=== PATIENT | female | born 1990 | race Caucasian/White ===

== ENCOUNTER 2017-02-19 19:08 | Emergency (ER) | payer OTHER ==
[2017-02-19] MEDS ORDERED: IPRATROPIUM/ALBUTEROL 0.5-2.5 MG/3 ML AMPUL NEB ONE ×2 (19:27→19:28)
[2017-02-19] MEDS ORDERED: METHYLPREDNISOLONE INJ 125 MG/2 ML SDV IV ONE (19:27)
[2017-02-19] MEDS ORDERED: NORMAL SALINE 1000 ML 1,000 ML IV ONE (19:27)
[2017-02-19] MEDS ORDERED: MAGNESIUM SULFATE/D5W 1 GM/100 ML RTUPB IV ONE (19:28)
[2017-02-19] MEDS ORDERED: ALBUTEROL SULFATE 0.083% NEB 2.5 MG/3 ML AMPUL NEB ONE (19:30)
--- NOTE | 2017-02-19 19:32 | ER Document Report ---
ED General - General Chief Complaint: Shortness Of Breath Stated Complaint: DIFFICULTY BREATHING Time Seen by Provider: 02/19/17 19:26 Cannot obtain history due to: Unstable vital signs Notes: Patient is a 26-year-old female with a past medical history asthma who presents with 20-30 minutes of severe shortness of breath. Patient states that her symptoms started relatively abruptly and did not improve after she tried an albuterol treatment. She denies a history of such a severe exacerbation in the past but also notes that she typically has albuterol available to her and only had one treatment available prior to coming to the hospital today. She does note that she has had some recent cough with associated clear phlegm which has been similar to multiple sick contacts with viral upper respiratory symptoms. She has not noted that anything seems to worsen her symptoms. History is otherwise somewhat limited secondary to the degree of patient's distress at time of arrival. TRAVEL OUTSIDE OF THE [place] IN LAST 30 DAYS: No - Related Data Allergies/Adverse Reactions: No Known Allergies Allergy (Verified 02/19/17 20:13) Past Medical History - General Information source: Patient - Social History Smoking Status: Never Smoker Frequency of alcohol use: None Drug Abuse: None Lives with: Spouse/Significant other Family History: Reviewed & Not Pertinent Review of Systems - Review of Systems Notes: Constitutional: Negative for fever. HENT: Negative for sore throat. Eyes: Negative for visual changes. Cardiovascular: Negative for chest pain. Respiratory: Positive for shortness of breath. Gastrointestinal: Negative for abdominal pain, vomiting or diarrhea. Genitourinary: Negative for dysuria. Musculoskeletal: Negative for back pain. Skin: Negative for rash. Neurological: Negative for headaches, weakness or numbness. 10 point ROS negative except as marked above and in HPI. Physical Exam - Vital signs Vitals: Temp Pulse Resp BP Pulse Ox 97.4 F 88 24 H 140/78 H 91 L 02/19/17 19:16 02/19/17 19:16 02/19/17 19:16 02/19/17 19:16 02/19/17 19:16 Interpretation: Hypoxic, Tachypneic Notes: PHYSICAL EXAMINATION: GENERAL: In moderate to severe respiratory distress. HEAD: Atraumatic, normocephalic. EYES: Pupils equal round and reactive to light, extraocular movements intact, sclera anicteric, conjunctiva are normal. ENT: nares patent, oropharynx clear without exudates. Moderately dry mucous membranes. NECK: Normal range of motion, supple without lymphadenopathy LUNGS: Poor air movement at the bases bilaterally. Tachypneic. Supraclavicular intercostal retractions are present. Prolonged expiratory phase with expiratory wheezing. HEART: Regular tachycardia without murmurs ABDOMEN: Soft, nontender, normoactive bowel sounds. No guarding, no rebound. No masses appreciated. EXTREMITIES: Normal range of motion, no pitting or edema. No cyanosis. NEUROLOGICAL: No focal neurological deficits. Moves all extremities spontaneously and on command. PSYCH: Normal mood, normal affect. SKIN: Warm, Dry, normal turgor, no rashes or lesions noted. Course - Re-evaluation Re-evalutation: 02/19/17 19:31 Patient presents in moderate respiratory distress with supraclavicular and intercostal retractions as well as poor air movement throughout. She is diminished at the bases bilaterally with prolonged respiratory phase. Immediately upon assessment of this patient I requested continuous albuterol Atrovent nebulization be started an IV placed. We will start Solu-Medrol, magnesium, IV fluids and maintain continuous nebulization of beta agonists. Will reassess frequently as patient is critically ill at this time due to her respiratory distress 02/19/17 20:14 Patient has had an incredibly rapid and marked improvement of her work of breathing after only 20 minutes on continuous nebulizers and the first 1 g of magnesium. Hold off on additional nebulization at this time but will continue to monitor the patient closely is I am worried about the degree of her respiratory distress at time of presentation and remain concerned for the possibility of rebound. - Vital Signs Vital signs: Temp Pulse Resp BP Pulse Ox 97.4 F 88 17 129/82 H 99 02/19/17 19:16 02/19/17 19:16 02/19/17 21:31 02/19/17 21:31 02/19/17 21:31 - Laboratory Result Diagrams: 02/19/17 19:45 02/19/17 19:45 - Diagnostic Test Radiology reviewed: Image reviewed, Reports reviewed Radiology results interpreted by me: 02/19/17 20:15 Chest x-ray: No acute infiltrate or pneumothorax Critical Care Note - Critical Care Note Total time excluding time spent on procedures (mins): 38 Comments: Critical care time spent obtaining history from patient or surrogate, discussions with consultants, development of treatment plan with patient or surrogate, evaluation of patient's response to treatment, examination of patient , ordering and performing treatments and interventions, ordering and review of laboratory studies, re-evaluation of patient's condition, ordering and review of radiographic studies and review of old charts Discharge - Discharge Clinical Impression: Respiratory distress Asthma exacerbation Qualifiers: Asthma severity: moderate Asthma persistence: unspecified Qualified Code(s): J45.901 - Unspecified asthma with (acute) exacerbation Condition: Good Disposition: HOME, SELF-CARE Additional Instructions: You were seen for an asthma exacerbation. Your symptoms improved with treatment here in the emergency department. However, it is very important that you return to the emergency department immediately if you began to have worsening difficulty breathing that does not respond to your normal home nebulizers. You are also being sent home on a five-day course of steroids that you should start taking tomorrow. Please also follow closely with your primary care physician. you should also return to emergency department if you develop fever greater than 101, persistent cough, persistent vomiting, pass out, or any other symptoms that are concerning to you. Prescriptions: Prednisone [Deltasone 20 mg Tablet] 3 tab PO DAILY 5 Days tablet
[2017-02-19] MEDS: MAGNESIUM SULFATE/D5W 1 GM/100 ML RTUPB IV SCH ×2 (19:42→20:03)
[2017-02-19 19:56] LABS: ABSOLUTE EOSINOPHILS # (AUTO) 0.2 10^3/uL (0.0-0.6); ABSOLUTE LYMPHOCYTES (AUTO) 2.6 10^3/uL (0.5-4.7); ABSOLUTE MONOCYTES (AUTO) 0.4 10^3/uL (0.1-1.4); ABSOLUTE NEUT (AUTO) 3.2 10^3/uL (1.7-8.2); BASOPHILS % (AUTO) 0.6 % (0-2); EOSINOPHILS % (AUTO) 3.1 % (0-6); HEMATOCRIT 44.1 % (36.0-47.0); HEMOGLOBIN 14.8 g/dL (12.0-15.5); LYMPHOCYTES % (AUTO) 40.4 % (13-45); MEAN CORPUSCULAR HEMOGLOBIN 29.3 pg (27.0-33.4); MEAN CORPUSCULAR HGB CONC 33.5 g/dL (32.0-36.0); MEAN CORPUSCULAR VOLUME 87 fl (80-97); MONOCYTES % (AUTO) 6.9 % (3-13); PLATELET COUNT 242 10^3/uL (150-450); RED BLOOD COUNT 5.05 10^6/uL (3.72-5.28); RED CELL DISTRIBUTION WIDTH 13.3 % (11.5-14.0); TOTAL CELLS COUNTED % (AUTO) 100 %; WHITE BLOOD COUNT 6.5 10^3/uL (4.0-10.5)
--- NOTE | 2017-02-19 19:58 | RADIOLOGY REPORT (SQ) ---
EXAM DESCRIPTION: CHEST SINGLE VIEW COMPLETED DATE/TIME: 02/19/2017 7:45 pm REASON FOR STUDY: sob COMPARISON: None. EXAM PARAMETERS: NUMBER OF VIEWS: One view. TECHNIQUE: Single frontal radiographic view of the chest acquired. RADIATION DOSE: NA LIMITATIONS: None. FINDINGS: LUNGS AND PLEURA: No opacities, masses or pneumothorax. No pleural effusion. MEDIASTINUM AND HILAR STRUCTURES: No masses. Contour normal. HEART AND VASCULAR STRUCTURES: Heart normal in size. Normal vasculature. BONES: No acute findings. HARDWARE: None in the chest. OTHER: No other significant finding. IMPRESSION: NO ACUTE RADIOGRAPHIC FINDING IN THE CHEST. TECHNICAL DOCUMENTATION: JOB ID: [id number] [place]-72 2010 [employer]- All Rights Reserved
[2017-02-19 20:11] LABS: ANION GAP 11 (5-19); BLOOD UREA NITROGEN 12 mg/dL (7-20); CALCIUM 10.2 mg/dL (8.4-10.2); CARBON DIOXIDE 27 mmol/L (22-30); CHLORIDE 103 mmol/L (98-107); GLUCOSE 99 mg/dL (75-110); POTASSIUM 4.4 mmol/L (3.6-5.0); SODIUM 141.4 mmol/L (137-145)
[2017-02-19] MEDS ORDERED: ALBUTEROL SULFATE HFA (90 MCG/PUFF) 8 GM MDI (1 MDI/ER DISP) IH PRN (20:16)
[2017-02-19 21:39] VITALS: BP 129/82
== END 2017-02-19 21:39 | disposition home or self-care (01) ==
LOC: ER 19:08
DX: J45.909 Unspecified asthma, uncomplicated (principal); R06.02 Shortness of breath; R05 Cough; R09.02 Hypoxemia
CPT/HCPCS: 94640; 99291; 96375; 96365; 36415; 85025; 80048; 71010; J2930; J3475; J7030; J3490; J7620

== ENCOUNTER → 2017-08-01 | Outpatient (CLI) | payer OTHER ==
--- NOTE | 2017-08-01 16:34 | RADIOLOGY REPORT (SQ) ---
EXAM DESCRIPTION: CT SINUSES FOR ENT COMPLETED DATE/TIME: 08/01/2017 3:12 pm REASON FOR STUDY: CHRONIC SINUSITIS, UNSPECIFIED J32.9 CHRONIC SINUSITIS, UNSPECIFIED COMPARISON: None. TECHNIQUE: Noncontrast scanning through the paranasal sinuses using bone algorithm. Reconstructed MPR images reviewed. All images stored on PACS. All CT scanners at this facility use dose modulation, iterative reconstruction, and/or weight based d osing when appropriate to reduce radiation dose to as low as reasonably achievable (ALARA). [facility]: Dose Right [facility]: CareDose [facility]: Dose Right [facility]: Teradose 4D [facility]: Linksify RADIATION DOSE: mGy. LIMITATIONS: None. FINDINGS: SINUSES: There is extensive sinus disease with opacification of the maxillary antra, ethmo idal air cells bilaterally, and frontal sinuses. NASAL CAVITY: Midline nasal septum. BONES: Normal mineralization. No fracture or bone lesion. ORBITS: Intact, symmetric globes. No retroorbital mass. TMJS: Normal. MASTOIDS: Clear. IACs symmetric, grossly normal. INFERIOR BRAIN: Limited view. No acute findings. OTHER: No other significant finding. IMPRESSION: Extensive sinus disease as noted above. TECHNICAL DOCUMENTATION: JOB ID: [id number] Quality ID # [id number]: Final reports with documentation of one or more dose reduction techniques (e.g., Au tomated exposure control, adjustment of the mA and/or kV according to patient size, use of iterative reconstruction technique) 2010 [employer]- All Rights Reserved Reading location - IP/workstation name: [facility]
== END ==
LOC: RAD 14:45
PROVIDERS: ATTEND Otolaryngology
DX: J32.9 Chronic sinusitis, unspecified (principal); J33.9 Nasal polyp, unspecified; J34.2 Deviated nasal septum
CPT/HCPCS: 70486

== ENCOUNTER 2017-11-21 08:45 | Day surgery (SDC) | payer OTHER ==
[~2017-11-21 08:45] MED LIST: CEFAZOLIN 2 GM/D5W RTU 2 GM/50 ML RTUPB IV PRN
[2017-11-21] MEDS ORDERED: ALBUTEROL SULFATE 0.083% NEB 2.5 MG/3 ML AMPUL NEB ONE (09:23)
[2017-11-21] MEDS ORDERED: SCOPOLAMINE HYDROBROMIDE 1.5 MG PATCH.TD72 TD PRN (09:36)
[2017-11-21] MEDS ORDERED: LIDOCAINE 0.5% INJ-PF (5 MG/ML) 50 ML SDV SUBCUT PRN (09:36)
[2017-11-21] MEDS ORDERED: LACTATED RINGERS 1000 ML IV PRN (09:36)
[2017-11-21] MEDS ORDERED: FENTANYL CITRATE INJ/PF 100 MCG/2 ML AMPUL ONE ×2 (10:58→11:03)
[2017-11-21] MEDS ORDERED: MIDAZOLAM HCL SYRUP 10 MG/5 ML UDC ONE (10:59)
[2017-11-21] MEDS ORDERED: MIDAZOLAM 2 MG/2 ML INJ ONE (11:00)
[2017-11-21] MEDS ORDERED: PROPOFOL INJ 200 MG/20 ML VIAL IV ONE (11:00)
[2017-11-21] MEDS ORDERED: BUPIVACAINE HCL 0.5%-EPI 1:200000 INJ/PF 30 ML VIAL ONE (11:18)
[2017-11-21] MEDS ORDERED: BUPIVACAINE HCL 0.5%/EPI 1:200000 INJ 1.8 ML CARTRIDGE ONE (11:18)
[2017-11-21] MEDS ORDERED: MINERAL OIL (STERILE) 10 ML VIAL ONE (11:18)
[2017-11-21] MEDS: OXYMETAZOLINE HCL 0.05% NASAL SPRAY 15 ML BOTTLE ONE ×2 (12:07→14:30)
[2017-11-21] MEDS ORDERED: DEXMEDETOMIDINE INJ 80 MCG/20 ML VIAL IV ONE (15:19)
[2017-11-21] MEDS ORDERED: PROMETHAZINE HCL INJ 25 MG/1 ML VIAL ONE (16:29)
[2017-11-21] MEDS ORDERED: OXYCODONE-ACETAMINOPHEN 5-325 MG TABLET ONE (16:47)
--- NOTE | 2017-11-25 07:56 | SURGICARE OPERATIVE REPORT E ---
[facility] [place] Operative Report NAME: CELIO MIRAMONTES AGE: 26Y DATE OF SURGERY: 11/21/2017 ROOM: PREOPERATIVE DIAGNOSES: 1. CHRONIC SINONASAL POLYPOSIS/POLYP DISEASE. 2. ACUTE RECURRENT SINUSITIS. 3. CHRONIC SINUSITIS. 4. NASAL SEPTAL DEVIATION, ACQUIRED. 5. CHRONIC NASAL DYSPNEA. 6. SEPTAL SPUR. 7. BILATERAL MIDDLE TURBINATE HYPERTROPHY. 8. BILATERAL INFERIOR TURBINATE HYPERTROPHY. POSTOPERATIVE DIAGNOSES: 1. CHRONIC SINONASAL POLYPOSIS/POLYP DISEASE. 2. ACUTE RECURRENT SINUSITIS. 3. CHRONIC SINUSITIS. 4. NASAL SEPTAL DEVIATION, ACQUIRED. 5. CHRONIC NASAL DYSPNEA. 6. SEPTAL SPUR. 7. BILATERAL MIDDLE TURBINATE HYPERTROPHY. 8. BILATERAL INFERIOR TURBINATE HYPERTROPHY. OPERATION: 1. Image-guided functional endoscopic sinus surgery, which includes the followin. Bilateral transnasal polypectomies/polyp tissue removal via rigid endoscopic surgical endoscopy. 3. Bilateral maxillary enterostomies with tissue removal via bilateral transnasal rigid surgical endoscopy. 4. Bilateral total ethmoidectomies (anterior and posterior ethmoidectomies) with tissue removal via bilateral transnasal rigid surgical endoscopy. 5. Bilateral intranasal/transnasal frontal sinus sinusotomies with tissue removal via bilateral rigid transnasal surgical endoscopy. 6. Septoplasty. 7. Bilateral inferior turbinate reduction using a submucous resection technique. 8. Bilateral middle turbinate reductions via bilateral rigid transnasal surgical endoscopy. 9. Placement of bilateral frontal sinus and bilateral ethmoid sinus distribution Propel steroid-eluting stents via bilateral transnasal rigid surgical endoscopy. SURGEON: TARIQ CEE D.O. ANESTHESIA: General endotracheal tube. ANESTHESIA STAFF: WILFRIDO Agrawal. COMPLICATIONS: None. DRAINS: None. SPONGE COUNT: Verified. NEEDLE COUNTS: Verified. MATERIALS FORWARDED SPECIMEN: Left and right sinus tissue/polyp tissue for rule out polyps. FINDINGS: 1. Extensive bilateral sinonasal polyp disease/polyp tissue/polyp changes. 2. Left nasal septal deviation involving bone and cartilage along with a left maxillary crest burst/septal spur. 3. There was no sinus discharge noted. 4. Bilateral middle turbinate hypertrophy. 5. Bilateral inferior turbinate hypertrophy. ESTIMATED BLOOD LOSS: 150 mL FLUIDS: 2350 mL URINE OUTPUT: 700 mL INDICATIONS: This is a 26-year-old white female patient who was seen and evaluated in the [place] otolaryngology office. The patient had been referred for and she complained of a longstanding history of acute recurrent sinus infections as well as chronic sinus disease and changes consistent with extensive sinonasal polyp disease. The patient had undergone CT sinus imaging and clinical collectable endoscopy. There was extensive discussion with the patient, with recommendation and plan for image-guided functional endoscopic sinus surgery, septoplasty, turbinate reductions, and placement of Propel steroid-eluting stents. The patient voiced an understanding of all that had been discussed and desired to proceed. The procedures and all of their risks and complications were all discussed in detail with the patient. She voiced an understanding of the described surgical plan, agreed to proceed, and consent was obtained. PROCEDURE: The patient was taken to the main operating room and was placed on the operating room table in the supine position. Appropriate monitors were placed. Using mask and IV access, general anesthesia was induced. The patient was transorally intubated without difficulty. The patient was then positioned and prepped for sinus and nasal surgery that was image guided. The patient underwent a nasal examination with injection of local anesthetic with epinephrine, followed by placement of 2 Afrin-soaked Neuro Patties. The image-guidance system was set up prior to beginning the case and tested appropriately. The patient was next prepped and draped in the usual fashion for nasal and sinus surgery. The 2 Afrin-soaked Neuro Patties were removed and the patient next underwent a hemitransfixion incision. There was elevation of the mucoperichondrial and mucoperiosteal flaps without difficulty. The bony septal cartilaginous junction was identified and divided and the most deviated portions of septal cartilage and bone were removed to include the large left septal spur/maxillary crest spur. There was a greater than 1.5 x 1.5-cm cartilaginous L strut that was preserved. At this point, the turbinate wand was used to make 2 passes in each inferior turbinate. Next, the turbinate microdebrider system at a setting of 1500 rpm was used to perform submucous resection on each side. At this point, the image guidance functional endoscopic sinus surgery portion of the case was addressed in the following manner. With use of sinus surgical instrumentation, the rigid transnasal surgical endoscope and microdebrider system at a setting of 3000 rpm, the middle turbinate reductions were performed, addressing the anterior portions on each side. The maxillary enterostomies were performed without difficulty with tissue removal bilateral. The anterior and posterior ethmoidectomies/total ethmoidectomies bilateral were performed without difficulty with tissue removal. The intranasal/transnasal frontal sinus sinusotomies were performed without difficulty. Once these portions of the case were completed, there was 1 Propel steroid-eluting stent placed within the frontal sinus recess distribution bilateral and in the ethmoid sinus distribution bilateral under the guidance of rigid surgical endoscopy. At this point, the patient's nose was again thoroughly irrigated and suctioned and there was adequate hemostasis noted. The patient had a modified Merocel pack placed, 1 per nasal passage, with bacitracin ointment and these were secured at the caudal aspect with Prolene suture. The hemitransfixion incision was reapproximated with chromic suture. At this point, the patient's nose was cleaned and dried and she was returned to the Anesthesia staff and was allowed to emerge from general anesthesia. The patient was extubated in the main operating room and was then transported to the postanesthesia recovery unit in stable condition. There were no complications. DICTATING PHYSICIAN: TARIQ CEE D.O. [id number] PHY#: [id number] ID: [id number] JOB#: [id number] ACCT: [id number] cc:TARIQ CEE D.O. >
== END 2017-11-21 17:26 | disposition home or self-care (01) ==
LOC: SC 08:45
PROVIDERS: ATTEND Otolaryngology
DX: J33.9 Nasal polyp, unspecified (principal); J33.8 Other polyp of sinus; J45.909 Unspecified asthma, uncomplicated; J32.9 Chronic sinusitis, unspecified; J34.2 Deviated nasal septum; J34.89 Other specified disorders of nose and nasal sinuses; R06.09 Other forms of dyspnea; R43.8 Other disturbances of smell and taste; Z79.51 Long term (current) use of inhaled steroids; Z79.899 Other long term (current) drug therapy
CPT/HCPCS: 160; 88305; J0690; J2250; J2550; J2704; J3010; J3490

== ENCOUNTER 2018-02-25 17:22 | Emergency (ER) | payer OTHER ==
[2018-02-25 17:27] VITALS: BP 130/79
[2018-02-25] MEDS ORDERED: LIDOCAINE 1% INJ-PF (10 MG/ML) 30 ML SDV INJ ONE (19:58)
[2018-02-25] MEDS ORDERED: ACETAMINOPHEN 325 MG TABLET PO ONE (20:00)
[2018-02-25] MEDS ORDERED: ONDANSETRON 4 MG TAB.RAPDIS PO ONE (20:00)
--- NOTE | 2018-02-25 20:00 | ER Document Report ---
ED Medical Screen (RME) - General Chief Complaint: Head Injury Stated Complaint: HEAD INJURY Time Seen by Provider: 02/25/18 19:55 Mode of Arrival: Ambulatory Information source: Patient Notes: 27-year-old female presents with a laceration to her forehead after hitting her head against the car door. Unclear whether she had a loss of consciousness. Is currently complaining of nausea and headache. No vomiting I have greeted and performed a rapid initial assessment of this patient. A comprehensive ED assessment and evaluation of the patient, analysis of test results and completion of medical decision making process we will be contacted by additional ED providers. PHYSICAL EXAMINATION: Vital signs reviewed-within normal limits GENERAL: Well-appearing, well-nourished and in no acute distress. LUNGS: No respiratory distress Musculoskeletal: Normal range of motion NEUROLOGICAL: Normal speech, normal gait. PSYCH: Normal mood, normal affect. SKIN: 1.5 cm laceration to the forehead TRAVEL OUTSIDE OF THE [place] IN LAST 30 DAYS: No - HPI Onset: Just prior to arrival Onset/Duration: Sudden Quality of pain: Achy Associated Symptoms: Headache, Nausea Exacerbated by: Denies Relieved by: Denies Similar symptoms previously: No Recently seen / treated by doctor: No - Related Data Smoking: Non-smoker Frequency of alcohol use: None Drug Abuse: None Allergies/Adverse Reactions: No Known Allergies Allergy (Verified 02/25/18 17:23) Past Medical History - Social History Chew tobacco use (# tins/day): No Frequency of alcohol use: None Drug Abuse: None - Past Medical History Cardiac Medical History: Denies: Hx Heart Attack, Hx Hypertension Pulmonary Medical History: Reports: Hx Asthma Neurological Medical History: Denies: Hx Cerebrovascular Accident, Hx Seizures Renal/ Medical History: Denies: Hx Peritoneal Dialysis GI Medical History: Denies: Hx Hepatitis, Hx Hiatal Hernia, Hx Ulcer Infectious Medical History: Denies: Hx Hepatitis Past Surgical History: Reports: Hx Gynecologic Surgery - L fallopian tube, Hx Nose Surgery - sinuses. Denies: Hx Mastectomy, Hx Open Heart Surgery, Hx Pacemaker Physical Exam - Vital signs Vitals: Temp Pulse Resp BP Pulse Ox 98.6 F 73 16 130/79 H 100 02/25/18 17:26 02/25/18 17:26 02/25/18 17:26 02/25/18 17:26 02/25/18 17:26 Course - Vital Signs Vital signs: Temp Pulse Resp BP Pulse Ox 98.6 F 73 16 130/79 H 100 02/25/18 17:26 02/25/18 17:26 02/25/18 17:26 02/25/18 17:26 02/25/18 17:26 Doctor's Discharge - Discharge Referrals: JIGAR BRANDT, [employer] [Primary Care Provider] - Follow up as needed
--- NOTE | 2018-02-25 22:25 | ER Document Report ---
ED General - General Chief Complaint: Head Injury Stated Complaint: HEAD INJURY Time Seen by Provider: 02/25/18 19:55 Mode of Arrival: Ambulatory Notes: Patient is a 27-year-old female presents with complaint of opening her car door and hitting her head with a car door. She had her forehead. She initially she was dazed but did not lose conscious. She had some nausea and headache but that has since resolved. She denies any other injuries. No other complaints. She initially had a little bit swelling to her forehead but she says is improved with cool compresses. She has a small laceration over her forehead. No neck pain. No other complaints at this time. She is not on blood thinning medications. TRAVEL OUTSIDE OF THE [place] IN LAST 30 DAYS: No - Related Data Allergies/Adverse Reactions: No Known Allergies Allergy (Verified 02/25/18 17:23) Past Medical History - General Information source: Patient - Social History Smoking Status: Never Smoker Chew tobacco use (# tins/day): No Frequency of alcohol use: None Drug Abuse: None Family History: Reviewed & Not Pertinent Patient has suicidal ideation: No Patient has homicidal ideation: No - Past Medical History Cardiac Medical History: Denies: Hx Heart Attack, Hx Hypertension Pulmonary Medical History: Reports: Hx Asthma Neurological Medical History: Denies: Hx Cerebrovascular Accident, Hx Seizures Renal/ Medical History: Denies: Hx Peritoneal Dialysis GI Medical History: Denies: Hx Hepatitis, Hx Hiatal Hernia, Hx Ulcer Infectious Medical History: Denies: Hx Hepatitis Past Surgical History: Reports: Hx Gynecologic Surgery - L fallopian tube, Hx Nose Surgery - sinuses. Denies: Hx Mastectomy, Hx Open Heart Surgery, Hx Pacemaker Review of Systems - Review of Systems Notes: My Normal Review Basic REVIEW OF SYSTEMS: CONSTITUTIONAL : Denies fever, chills, or sweats. Denies recent illness. MUSCULOSKELETAL: Denies neck or back pain or joint pain or swelling. SKIN: Small laceration of her forehead. HEMATOLOGIC : Denies easy bruising or bleeding. NEUROLOGICAL: Denies altered mental status or loss of consciousness. A headache. Denies weakness or paralysis or loss of use of either side. Denies problems with gait or speech. Denies sensory or motor loss. ALL OTHER SYSTEMS REVIEWED AND NEGATIVE. Physical Exam - Vital signs Vitals: Temp Pulse Resp BP Pulse Ox 98.6 F 73 16 130/79 H 100 02/25/18 17:26 02/25/18 17:26 02/25/18 17:26 02/25/18 17:02/25/18 17:26 - Notes Notes: General Appearance: Well nourished, alert, cooperative, no acute distress, no obvious discomfort. Well-appearing. Vitals: reviewed, See vital signs table. Head: Old bruise over the forehead with a overlying 1 cm non-gaping laceration. No active bleeding. Eyes: PERRL, EOMI, Conjuctiva clear Mouth: No decreasd moisture Throat: No tonsillar inflammation, No airway obstruction, No lymphadenopathy Neck: Supple, no neck tenderness, No thyromegaly Neuro: speech clear, oriented x 3, normal affect, responds appropriately to questions. Nerves II through XII are intact. Distal sensation intact. Normal gait. Normal Romberg. Course - Re-evaluation Re-evalutation: 02/26/18 06:16 Small laceration was cleaned with peroxide. Then placed Dermabond over the laceration. This gave good wound edge approximation. Patient looks well. She has no neurologic deficits. She did not have loss conscious. She has not had vomiting. She no longer has a headache. I do not feel that she needs a CT scan at this time. Informed her that she developed severe headache, vomiting, or if she feels unwell she should return to the ER at that time and we should reconsider CT scan at that time. Patient agrees with plan will be discharged home. Dictation of this chart was performed using voice recognition software; therefore, there may be some unintended grammatical errors. - Vital Signs Vital signs: Temp Pulse Resp BP Pulse Ox 98.6 F 73 16 130/79 H 100 02/25/18 17:26 02/25/18 17:26 02/25/18 17:26 02/25/18 17:26 02/25/18 17:26 Procedures - Laceration/Wound Repair Head Wound length (cm): 1 Wound's Depth, Shape: Linear Laceration pre-procedure: Other - Peroxide Wound explored: Clean Wound Repaired With: Dermabond Discharge - Discharge Clinical Impression: Facial laceration Qualifiers: Encounter type: initial encounter Qualified Code(s): S01.81XA - Laceration without foreign body of other part of head, initial encounter Minor head injury without loss of consciousness Qualifiers: Encounter type: initial encounter Qualified Code(s): S09.90XA - Unspecified injury of head, initial encounter Condition: Good Disposition: HOME, SELF-CARE Additional Instructions: Please wait 12 hours before washing the area on your forehead that was glued. After that time period has passed you can gently wash with soap and water and than gently pat dry. return to the ER if you have any redness or swelling or concerns for infection. Return to the ER immediately if you have worsening recurrent headaches, vomiting, or feel unwell in an any way. Referrals: JIGAR BRANDT NP [Primary Care Provider] - Follow up in 3-5 days
== END 2018-02-25 22:30 | disposition home or self-care (01) ==
LOC: ER 17:22
PROC: 0HQ0XZZ Repair Scalp Skin, External Approach (ICD-10-PCS; principal; 2018-02-25)
DX: S09.90XA Unspecified injury of head, initial encounter (principal); S01.81XA Laceration without foreign body of other part of head, initial encounter; W22.8XXA Striking against or struck by other objects, initial encounter; J45.909 Unspecified asthma, uncomplicated
CPT/HCPCS: 12001; G0168; 99283

== ENCOUNTER 2018-05-23 13:58 | Emergency (ER) | payer OTHER ==
--- NOTE | 2018-05-23 14:53 | ER Document Report ---
ED Medical Screen (RME) - General TRAVEL OUTSIDE OF THE [place] IN LAST 30 DAYS: No <REESE LEMOS - Last Filed: 05/23/18 14:53> <AURELIANO SINGH - Last Filed: 05/23/18 18:04> - General Chief Complaint: Difficulty Swallowing Stated Complaint: SORE THROAT Time Seen by Provider: 05/23/18 14:46 Primary Care Provider: JIGAR BRANDT STRUCTURAL ENGINEERING PROJECT MANAGER [Primary Care Provider] - Follow up as needed Notes: 27-year-old female patient with a one-week history of sore throat. At this time she has difficulty swallowing saliva. There has been no fever. She states her throat feels like it swollen. She is on Flovent and Zyrtec for allergies. She also takes BuSpar and Zoloft. She did have have the Nexplanon, but thinks that the tube may be broken. Brief exam shows no abnormal adenopathy. Posterior pharyngeal and tonsillar tissues do not appear significantly edematous. I have greeted and performed a rapid initial assessment of this patient. A comprehensive ED assessment and evaluation of the patient, analysis of test results and completion of the medical decision making process will be conducted by additional ED providers. (REESE LEMOS) - Related Data Allergies/Adverse Reactions: No Known Allergies Allergy (Verified 05/23/18 13:59) Past Medical History - Past Medical History Cardiac Medical History: Denies: Hx Heart Attack, Hx Hypertension Pulmonary Medical History: Reports: Hx Asthma Neurological Medical History: Denies: Hx Cerebrovascular Accident, Hx Seizures Renal/ Medical History: Denies: Hx Peritoneal Dialysis GI Medical History: Denies: Hx Hepatitis, Hx Hiatal Hernia, Hx Ulcer Infectious Medical History: Denies: Hx Hepatitis Past Surgical History: Reports: Hx Gynecologic Surgery - L fallopian tube, Hx Nose Surgery - sinuses. Denies: Hx Mastectomy, Hx Open Heart Surgery, Hx Pacemaker <REESE LEMOS - Last Filed: 05/23/18 14:53> - Vital signs Vitals: Temp Pulse Resp BP Pulse Ox 98.2 F 83 22 H 135/74 H 99 05/23/18 14:02 05/23/18 14:02 05/23/18 14:02 05/23/18 14:02 05/23/18 14:02 Course - Laboratory Result Diagrams: 05/23/18 15:12 05/23/18 15:12 <AURELIANO SINGH - Last Filed: 05/23/18 18:04> - Vital Signs Vital signs: Temp Pulse Resp BP Pulse Ox 98.2 F 83 22 H 135/74 H 99 05/23/18 14:02 05/23/18 14:02 05/23/18 14:02 05/23/18 14:02 05/23/18 14:02 - Laboratory Laboratory results interpreted by me: 05/23/18 05/23/18 15:12 15:12 RDW 15.4 H C-Reactive Protein 18.8 H Doctor's Discharge <REESE LEMOS - Last Filed: 05/23/18 14:53> <AURELIANO SINGH - Last Filed: 05/23/18 18:04> - Discharge Referrals: JIGAR BRANDT, STRUCTURAL ENGINEERING PROJECT MANAGER [Primary Care Provider] - Follow up as needed
[2018-05-23] MEDS ORDERED: METHYLPREDNISOLONE INJ 125 MG/2 ML SDV IV ONE (14:54)
[2018-05-23] MEDS ORDERED: KETOROLAC TROMETHAMINE INJ/PF 30 MG/1 ML SDV IV ONE (14:54)
[2018-05-23] MEDS ORDERED: NORMAL SALINE 1000 ML 1,000 ML IV ONE (14:54)
[2018-05-23 15:41] LABS: ABSOLUTE EOSINOPHILS # (AUTO) 0.2 10^3/uL (0.0-0.6); ABSOLUTE LYMPHOCYTES (AUTO) 1.8 10^3/uL (0.5-4.7); ABSOLUTE MONOCYTES (AUTO) 0.4 10^3/uL (0.1-1.4); BASOPHILS % (AUTO) 0.4 % (0-2); EOSINOPHILS % (AUTO) 2.6 % (0-6); HEMATOCRIT 37.3 % (36.0-47.0); HEMOGLOBIN 12.5 g/dL (12.0-15.5); MEAN CORPUSCULAR HEMOGLOBIN 28.7 pg (27.0-33.4); MEAN CORPUSCULAR HGB CONC 33.6 g/dL (32.0-36.0); MEAN CORPUSCULAR VOLUME 85 fl (80-97); PLATELET COUNT 313 10^3/uL (150-450); RED BLOOD COUNT 4.36 10^6/uL (3.72-5.28); RED CELL DISTRIBUTION WIDTH 15.4 % (11.5-14.0); TOTAL CELLS COUNTED % (AUTO) 100 %; WHITE BLOOD COUNT 6.4 10^3/uL (4.0-10.5)
[2018-05-23 15:54] LABS: ALANINE AMINOTRANSFERASE 26 U/L (9-52); ALBUMIN 4.4 g/dL (3.5-5.0); ALKALINE PHOSPHATASE 102 U/L (38-126); ANION GAP 9 (5-19); ASPARTATE AMINO TRANSFERASE 23 U/L (14-36); BILIRUBIN,DIRECT 0.3 mg/dL (0.0-0.4); BILIRUBIN,TOTAL 1.1 mg/dL (0.2-1.3); BLOOD UREA NITROGEN 9 mg/dL (7-20); C-REACTIVE PROTEIN 18.8 mg/L (<10.0); CALCIUM 9.8 mg/dL (8.4-10.2); CARBON DIOXIDE 24 mmol/L (22-30); CHLORIDE 107 mmol/L (98-107); GLUCOSE 95 mg/dL (75-110); SODIUM 139.9 mmol/L (137-145); TOTAL PROTEIN 7.6 g/dL (6.3-8.2)
--- NOTE | 2018-05-23 18:19 | ER Document Report ---
ED General - General Chief Complaint: Difficulty Swallowing Stated Complaint: SORE THROAT Time Seen by Provider: 05/23/18 14:46 Primary Care Provider: JIGAR BRANDT NP [Primary Care Provider] - Follow up as needed Notes: Patient is a 27-year-old female who presents to the emergency department with a chief complaint of a sore throat, and feeling like her throat is closing up. She has had these symptoms since Friday night. She states that she does have some allergies and is currently on Zyrtec. She received a dose of steroids in triage and states that she does feel better. She was seen by urgent care and tested for strep, which came back negative, but was sent for evaluation for possible peritonsillar abscess. Past medical history includes left fallopian tube surgery, asthma, nasal polyps with surgery, and chronic sinusitis with surgery. She denies any difficulty breathing, chest pain, cough, nausea, v omiting, or diarrhea. TRAVEL OUTSIDE OF THE [place] IN LAST 30 DAYS: No - Related Data Allergies/Adverse Reactions: No Known Allergies Allergy (Verified 05/23/18 13:59) Past Medical History - Social History Smoking Status: Unknown if Ever Smoked Chew tobacco use (# tins/day): No Frequency of alcohol use: Occasional Drug Abuse: None Family History: Reviewed & Not Pertinent Patient has suicidal ideation: No Patient has homicidal ideation: No - Past Medical History Cardiac Medical History: Denies: Hx Heart Attack, Hx Hypertension Pulmonary Medical History: Reports: Hx Asthma Neurological Medical History: Denies: Hx Cerebrovascular Accident, Hx Seizures Renal/ Medical History: Denies: Hx Peritoneal Dialysis GI Medical History: Denies: Hx Hepatitis, Hx Hiatal Hernia, Hx Ulcer Infectious Medical History: Denies: Hx Hepatitis Past Surgical History: Reports: Hx Gynecologic Surgery - L fallopian tube, Hx Nose Surgery - sinuses. Denies: Hx Mastectomy, Hx Open Heart Surgery, Hx Pacemaker Review of Systems - Review of Systems Notes: REVIEW OF SYSTEMS: CONSTITUTIONAL : Denies recent illness. Denies recent unintentional weight loss. Denies fever, chills, or sweats. EENT: See HPI CARDIOVASCULAR: Denies chest pain. RESPIRATORY: Denies shortness of breath, cough, congestion, difficulty breathing, or wheezing. GASTROINTESTINAL: Denies nausea, vomiting, and diarrhea. Denies abdominal pain. Denies constipation. GENITOURINARY: Denies difficulty urinating, burning, blood in urine, urgency or frequency. MUSCULOSKELETAL: Denies neck and back pain. Denies joint pain or swelling. SKIN: Denies rash, itchiness, or lesions HEMATOLOGIC : Denies easy bruising or bleeding. LYMPHATIC: Denies swollen, painful, enlarged glands. NEUROLOGICAL: Denies no numbness or tingling denies weakness. Denies headache. Denies altered mental status. Denies alteration in speech. PSYCHIATRIC: Denies stress, anxiety, alteration in sleep patterns, or depression. All other systems reviewed and negative. Physical Exam - Vital signs Vitals: Temp Pulse Resp BP Pulse Ox 98.2 F 83 22 H 135/74 H 99 05/23/18 14:02 05/23/18 14:02 05/23/18 14:02 05/23/18 14:02 05/23/18 14:02 - Notes Notes: PHYSICAL EXAMINATION: GENERAL: Appears well, healthy, well-nourished, no acute distress. HEAD: Normocephalic, atraumatic. EYES: PERRL, conjunctiva normal, all extraocular movements intact, sclera nonicteric ENT: Moist mucous membranes. NECK: Supple, no noticeable swelling, redness, rash. Normal range of motion. LUNGS: Equal breath sounds bilaterally and clear to auscultation. No wheezes rales or rhonchi. CARDIOVASCULAR: S1-S2, regular rate, regular rhythm. Radial pulses 2+, normal. ABDOMEN: Normoactive bowel sounds. Soft, nontender, no guarding, no rebound tenderness, and no masses palpated. EXTREMITIES: Normal strength and range of motion, no pitting or edema. No cyanosis. NEUROLOGICAL: Moves all extremities upon command. Strength 5/5 in all extremities. PSYCH: Normal mood, normal affect. SKIN: Warm, dry. No rash, lesions, ulcerations noted. Normal skin turgor. Course - Re-evaluation Re-evalutation: 05/23/18 18:21 Since the patient states that she does feel better after receiving a dose of steroids in triage, she will be placed on steroids for the next 5 days to go home with. I do not think she has any life-threatening etiology at this time. Uvula is midline, ruling out peritonsillar abscess. I will also start her on Singulair, because I think the cause of her symptoms is due to her allergies. Her lung sounds are clear. Verbal discharge instructions were given to the patient. They verbalized understanding. They are stable for discharge. - Vital Signs Vital signs: Temp Pulse Resp BP Pulse Ox 98.2 F 83 22 H 135/74 H 99 05/23/18 14:02 05/23/18 14:02 05/23/18 14:02 05/23/18 14:02 05/23/18 14:02 - Laboratory Result Diagrams: 05/23/18 15:12 05/23/18 15:12 Laboratory results interpreted by me: 05/23/18 05/23/18 15:12 15:12 RDW 15.4 H C-Reactive Protein 18.8 H Discharge - Discharge Clinical Impression: Sore throat, Seasonal allergies Condition: Stable Disposition: HOME, SELF-CARE Additional Instructions: You were seen today in the emergency department for a sore throat. There is no evidence of a peritonsillar abscess on her exam. You have been sent home with steroids and Singulair. You can take Tylenol 1000 mg and ibuprofen 600 mg every 6 hours as needed for your pain. Ibuprofen will help with any inflammation. Use as directed, you develop shortness of breath, difficulty breathing, or any symptoms that are worrisome to you, please return to the emergency department. Please follow-up with your primary care in regards to this visit. Prescriptions: Montelukast Sodium [Singulair 10 mg Tablet] 10 mg PO QHS #30 tablet Prednisone [Deltasone 20 mg Tablet] 3 tab PO DAILY 5 Days #15 tablet Referrals: JIGAR BRANDT NP [Primary Care Provider] - Follow up as needed
[2018-05-23 18:43] VITALS: BP 136/75
== END 2018-05-23 18:43 | disposition home or self-care (01) ==
LOC: ER 13:58
DX: J02.9 Acute pharyngitis, unspecified (principal); J30.2 Other seasonal allergic rhinitis
CPT/HCPCS: 99283; 96361; 96374; 96375; 36415; 87070; 87880; 84703; 85025; 86140; 80053; J2930; J1885; J7030